=== PATIENT | male | born 1960 | race Caucasian/White ===

== ENCOUNTER 2016-09-19 21:50 | Emergency (ER) | payer OTHER ==
--- NOTE | 2016-09-19 22:58 | ED ---
Alcohol HPI - General Chief Complaint: Alcohol Stated Complaint: ETOH Time Seen by Provider: 09/19/16 22:07 Source: EMS Mode of arrival: EMS Limitations: altered mental status - History of Present Illness Initial Comments: Patient brought by EMS. They had been summoned by police for person who was reportedly intoxicated in public. Patient not able to give much history due to apparent intoxication. He does admit to drinking. Patient states he thinks he is at work. Denies injury. MD Complaint: alcohol intoxication Last Drink: unknown Associated Symptoms: denies other symptoms - Related Data Home Medications Medication Instructions Recorded Confirmed Unable To Assess [Unable to Assess] 07/20/13 07/20/13 Allergies Allergy/AdvReac Type Severity Reaction Status Date / Time Unable to Assess Allergy Verified 09/19/16 21:55 Review of Systems ROS Statement: Those systems with pertinent positive or pertinent negative responses have been documented in the HPI. ROS Other: All systems not noted in ROS Statement are negative. Limitations: ROS unobtainable due to patients medical condition Cardiovascular: Denies: chest pain Gastrointestinal: Denies: abdominal pain Musculoskeletal: Denies: back pain Neurological: Denies: headache Past Medical History Past Medical History: No Reported History History of Any Multi-Drug Resistant Organisms: Unobtainable Past Surgical History: No Surgical Hx Reported Past Psychological History: Unable to Obtain Smoking Status: Unknown if ever smoked Past Alcohol Use History: Unable to Obtain Past Drug Use History: Unable to Obtain General Exam Limitations: no limitations General appearance: appears intoxicated, obtunded Head exam: Present: atraumatic, normocephalic, normal inspection Eye exam: Present: PERRL, nystagmus ENT exam: Present: mucous membranes moist Neck exam: Present: normal inspection, full ROM. Absent: tenderness Respiratory exam: Present: normal lung sounds bilaterally. Absent: respiratory distress, wheezes, rales, rhonchi, stridor, chest wall tenderness Cardiovascular Exam: Present: regular rate, normal rhythm, normal heart sounds. Absent: systolic murmur, diastolic murmur, rubs, gallop GI/Abdominal exam: Present: soft. Absent: tenderness, guarding, rebound, mass Extremities exam: Absent: tenderness Back exam: Absent: vertebral tenderness Neurological exam: Present: altered, CN II-XII intact, other (Patient moves all 4 extremities. Patient is GCS 13 (e=3, v=4, m=6)). Absent: oriented X3 ( Oriented to person), motor sensory deficit Skin exam: Present: warm, dry, intact, normal color. Absent: rash Course Vital Signs 09/19/16 09/20/16 09/20/16 21:53 00:02 04:54 Temperature 97.0 F L 96.8 F L Pulse Rate 73 63 82 Respiratory 16 16 19 Rate Blood Pressure 119/66 95/50 112/63 O2 Sat by Pulse 93 L 95 95 Oximetry Disposition Clinical Impression: Alcohol intoxication Disposition: HOME SELF-CARE Condition: Fair Instructions: Alcohol Intoxication (ED) Referrals: None,Stated [Primary Care Provider] - 1-2 days
--- NOTE | 2016-09-19 23:20 | CT ---
INDICATION: Mental status changes TECHNIQUE: CT acquisition is performed through the brain. Sagittal and coronal reformatted images provided. No IV contrast is administered. DOSE INFORMATION: CTDIvol 57.40 mGy; DLP 1047.1 mGy-cm. One or more of the following dose reduction techniques were used: automated exposure control, adjustment of the mA and/or kV according to patient size, use of iterative reconstruction technique. COMPARISON: CT head 07/20/13. FINDINGS: There is no evidence of acute intracranial hemorrhage, mass effect, or midline shift. There is no abnormal extra axial fluid collection. Sulci, ventricles, and basal cisterns are normal in size and configuration for patient age. The richard-white matter differentiation is preserved. There is no evidence of skull fracture. The visualized paranasal sinuses demonstrate trace mucosal thickening. The mastoid air cells are clear. IMPRESSION: 1. No CT evidence of acute intracranial process.
[2016-09-20 04:55] VITALS: BP 112/63; PULSE 82; RESP 19
[2016-09-20 05:55] VITALS: TEMP 97.4
== END 2016-09-20 05:45 | disposition home or self-care (01) ==
LOC: EC 21:50
DX: F10.229 Alcohol dependence with intoxication, unspecified (principal); R41.82 Altered mental status, unspecified
CPT/HCPCS: 70450; 99284

== ENCOUNTER 2017-11-06 10:15 | Emergency (ER) | payer OTHER ==
[2017-11-06] MEDS ORDERED: SODIUM CHLORIDE 0.9% 1,000 ML IV STA (10:20)
[2017-11-06] MEDS ORDERED: IPRATROPIUM-ALBUTEROL 3 ML NEB INHALATION STA (10:20)
[2017-11-06] MEDS ORDERED: methylPREDNISolone SOD SUCCI 125 MG/2 ML VIAL IV STA (10:20)
--- NOTE | 2017-11-06 10:24 | ED ---
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 He states the pain is [id number] in severity. He does state he is short of breath. He also states he does not like his living situation and has been very anxious recently MD Complaint: chest pain, other - Related Data Home Medications Medication Instructions Recorded Confirmed No Known Home Medications 11/06/17 11/06/17 Allergies Allergy/AdvReac Type Severity Reaction Status Date / Time No Known Allergies Allergy Verified 11/06/17 11:41 Review of Systems ROS Statement: Those systems with pertinent positive or pertinent negative responses have been documented in the HPI. ROS Other: All systems not noted in ROS Statement are negative. EKG Findings - EKG Results: EKG: interpreted by JOSE MIGUEL, sinus rhythm (Sinus bradycardia 57 appear of 01 84 QRS 96 QT since QTC 466/453 moderate voltage criteria for LVH nonspecific septal changes) Past Medical History Past Medical History: No Reported History History of Any Multi-Drug Resistant Organisms: Unobtainable Past Surgical History: No Surgical Hx Reported Past Psychological History: Unable to Obtain Smoking Status: Unknown if ever smoked Past Alcohol Use History: Unable to Obtain Past Drug Use History: Unable to Obtain General Exam - General Exam Comments Initial Comments: This is a well-developed well-nourished awake alert oriented 3 male who does appear anxious and dyspneic General appearance: alert, in no apparent distress Head exam: Present: atraumatic, normocephalic, normal inspection Eye exam: Present: normal appearance, PERRL, EOMI. Absent: scleral icterus, conjunctival injection, periorbital swelling ENT exam: Present: normal exam, mucous membranes moist Neck exam: Present: normal inspection. Absent: tenderness, meningismus, lymphadenopathy Respiratory exam: Present: wheezes, chest wall tenderness (Producible tenderness palpation over the costal sternal margin no step-off or crepitation scattered expiratory wheezes.), decreased breath sounds. Absent: respiratory distress, rales, rhonchi, stridor Cardiovascular Exam: Present: regular rate, normal rhythm, normal heart sounds. Absent: systolic murmur, diastolic murmur, rubs, gallop, clicks GI/Abdominal exam: Present: soft, normal bowel sounds. Absent: distended, tenderness, guarding, rebound, rigid Extremities exam: Present: normal inspection, full ROM, normal capillary refill. Absent: tenderness, pedal edema, joint swelling, calf tenderness Back exam: Present: normal inspection Neurological exam: Present: alert, oriented X3, CN II-XII intact Psychiatric exam: Present: normal affect, normal mood Skin exam: Present: warm, dry, intact, normal color. Absent: rash Course Vital Signs 11/06/17 11/06/17 11/06/17 10:33 10:44 10:57 Temperature 97.5 F L Pulse Rate 60 71 68 Respiratory 19 Rate Blood Pressure 127/92 O2 Sat by Pulse 95 Oximetry Chest Pain [facility] Patient is pain-free at this time I did have a long discussion with her regarding the findings CAT scan showed evidence of a aortic aneurysm which she is aware of. I did offer the patient admission he does not want be admitted this time he wants to follow palpation. The presentation is consistent with atypical chest pain. He was invited to come back at any time. Disposition Clinical Impression: Atypical chest pain Disposition: HOME SELF-CARE Condition: Good Instructions: Chest Pain (ED) Is patient prescribed a controlled substance at d/c from ED?: No Referrals: None,Stated [Primary Care Provider] - 1-2 days
[2017-11-06 11:01] LABS: ALT 27 U/L (21-72); AST 40 U/L (17-59); Albumin 3.7 g/dL (3.5-5.0); Alkaline Phosphatase 62 U/L (38-126); Anion Gap 13 mmol/L; Blood Urea Nitrogen 10 mg/dL (9-20); Calcium 8.8 mg/dL (8.4-10.2); Carbon Dioxide 22 mmol/L (22-30); Chloride 106 mmol/L (98-107); Glucose 156 mg/dL (74-99); Magnesium 1.6 mg/dL (1.6-2.3); Potassium 4.4 mmol/L (3.5-5.1); Sodium 141 mmol/L (137-145); Total Bilirubin 0.5 mg/dL (0.2-1.3); Total Protein 6.4 g/dL (6.3-8.2)
[2017-11-06 11:02] LABS: Partial Thromboplastin Time 24.1 sec (22.0-30.0); Prothrombin Time 9.7 sec (9.0-12.0)
[2017-11-06 11:03] LABS: Basophils % (A) 0 %; Eosinophils # (A) 0.1 k/uL (0-0.7); Eosinophils % (A) 1 %; HCT 41.6 % (39.0-53.0); HGB 13.3 gm/dL (13.0-17.5); Lymphocytes # (A) 0.8 k/uL (1.0-4.8); Lymphocytes % (A) 8 %; MCH 30.5 pg (25.0-35.0); MCHC 31.9 g/dL (31.0-37.0); MCV 95.6 fL (80.0-100.0); Mean Platelet Volume 6.7; Monocytes # (A) 0.8 k/uL (0-1.0); Monocytes % (A) 8 %; Neutrophils # (A) 8.5 k/uL (1.3-7.7); Neutrophils % (A) 83 %; Platelet Count 330 k/uL (150-450); RBC 4.35 m/uL (4.30-5.90); RDW 12.8 % (11.5-15.5); WBC 10.3 k/uL (3.8-10.6)
[2017-11-06 11:04] LABS: D-Dimer 1.22 mg/L FEU (<0.60)
[2017-11-06 11:08] LABS: Creatine Kinase 234 U/L (55-170)
--- NOTE | 2017-11-06 11:16 | XR ---
EXAMINATION TYPE: XR chest 2V DATE OF EXAM: 11/06/2017 COMPARISON: 07/20/2013 TECHNIQUE: PA and lateral views submitted. HISTORY: Difficulty breathing FINDINGS: The lungs are clear and there is no pneumothorax, pleural effusion, or focal pneumonia. Curvature t he spine noted. There is a 8mm nodule in the left upper lobe. Hyperinflation suggests COPD. No overt failure. Hypertrophic degenerative change of the spine. IMPRESSION: 1. No acute process. Correlate for COPD. 2. A millimeter left upper lobe pulmonary nodule.
[2017-11-06 11:21] LABS: Creatine Kinase MB 2.2 ng/mL (0.0-2.4); Troponin I <0.012 ng/mL (0.000-0.034)
--- NOTE | 2017-11-06 11:55 | CT ---
EXAMINATION TYPE: CT angio chest DATE OF EXAM: 11/06/2017 COMPARISON: None HISTORY: 57-year-old male Chest pain TECHNIQUE: Contiguous axial scanning of the chest performed with IV Contrast, patient injected with 7 5 mL of Isovue 370. Coronal/sagittal MIP reconstructions performed. CT DLP: 354 mGycm Automated exposure control for dose reduction was used. FINDINGS: Heart normal size with a [id number] pericardial effusion measuring 1.2 cm thick. Ascending aorta mildly aneurysmal at 4.2 cm. Conventional branching anatomy and additional aneurysm u pper descending thoracic aorta 3.8 cm. Lower descending thoracic aorta is ectatic at 2.8 cm. Possible circumferential wall thickening of the distal third thoracic esophagus, for example, refer t o axial image 69. This may relate to redundant and adjacent abutting mediastinal soft tissue. No thoracic lymphadenopathy by CT size criteria. Satisfactory opacification of the pulmonary nodule system without evidence for pulmonary embolus. Mild/moderate diffuse bronchial wall thickening and moderate centrilobular emphysema. Trace left pleural effusion with adjacent atelectasis is noted. Visualized upper abdomen show a hypervascular blush within the caudate lobe measuring 2.0 cm, either vascular shunting or a flash filling hemangioma. Bones: Moderate multilevel degenerative disc disease. IMPRESSION: 1. NO EVIDENCE FOR PULMONARY EMBOLUS. 2. THORACIC AORTIC ANEURYSM (ASCENDING 4.2 CM AND UPPER DESCENDING 3.8 CM). 3. COPD WITH MODERATE EMPHYSEMA. TRACE LEFT PLEURAL EFFUSION WITH ADJACENT ATELECTASIS. 4. QUESTIONABLE ABNORMAL WALL THICKENING ALONG THE DISTAL THIRD THORACIC ESOPHAGUS. CORRELATE FOR POS SIBLE ESOPHAGITIS. DIRECT VISUALIZATION TO EXCLUDE THE POSSIBILITY OF NEOPLASM. 5. SMALL TO MODERATE PERICARDIAL EFFUSION MEASURING 1.2 CM THICK.
[2017-11-06 14:27] VITALS: BP 157/83; PULSE 89; RESP 18; TEMP 97.6
== END 2017-11-06 14:27 | disposition home or self-care (01) ==
LOC: EC 10:15
DX: R07.89 Other chest pain (principal); I71.2 Thoracic aortic aneurysm, without rupture; J44.9 Chronic obstructive pulmonary disease, unspecified; I25.2 Old myocardial infarction
CPT/HCPCS: 99285; 96374; 96361 ×4; 36415; 94640; 93005; 85379; 83880; 80053; 82550; 82553; 83735; 84484; 85025; 85610; 85730; 71046; 71275; J2930; Q9967

== ENCOUNTER → 2019-05-01 | Outpatient (CLI) | payer OTHER ==
--- NOTE | 2019-05-01 13:05 | CT ---
EXAMINATION TYPE: CT chest wo con DATE OF EXAM: 05/01/2019 COMPARISON: 11/06/2017 HISTORY: Abnormal chest xray, chest pain and shortness of breath. CT DLP: 284 mGycm. Automated Exposure Control for Dose Reduction was Utilized. TECHNIQUE: CT scan of the thorax is performed without IV contrast. FINDINGS: LUNGS: The lungs are grossly clear, there is no concerning parenchymal mass or nodule identified. T here is no pleural effusion or pneumothorax seen. There is diffuse emphysematous change compatible w ith COPD. The tracheobronchial tree is patent. MEDIASTINUM: Lack of IV contrast is noted to limit evaluation for mediastinal and especially hilar ad enopathy. There are no definitive greater than 1 cm hilar or mediastinal lymph nodes. No cardiomega ly or pericardial effusion is seen. Ascending aorta measures 4.4 cm compatible with mild aneurysmal d ilation. Trace of pericardial fluid noted. OTHER: Multilevel degenerative disc disease. Scoliotic curvature noted. Liver is prominent in size. M easures 23 cm.. IMPRESSION: 1. COPD with no acute intrathoracic process. 2. 4.4 cm ascending aortic aneurysm which previously measured 4.2 cm. 3. Hepatomegaly 4. Mild thickening of the distal esophageal wall is stable with a small hiatal hernia. Correlate with direct visualization as clinically warranted.
== END | disposition home or self-care (01) ==
LOC: RADCTMAIN 11:54
PROVIDERS: ATTEND Family Medicine
DX: J44.9 Chronic obstructive pulmonary disease, unspecified (principal); I71.2 Thoracic aortic aneurysm, without rupture; K22.8 Other specified diseases of esophagus
CPT/HCPCS: 71250

== ENCOUNTER 2022-01-18 23:45 | Inpatient (IN) | payer OTHER ==
[2022-01-19 00:59] LABS: Basophils % (A) 0 %; Eosinophils # (A) 0.1 k/uL (0-0.7); Eosinophils % (A) 0 %; HCT 38.4 % (39.0-53.0); HGB 13.1 gm/dL (13.0-17.5); Lymphocytes # (A) 0.7 k/uL (1.0-4.8); Lymphocytes % (A) 6 %; MCH 31.1 pg (25.0-35.0); MCHC 34.1 g/dL (31.0-37.0); MCV 91.1 fL (80.0-100.0); Mean Platelet Volume 8.4; Monocytes # (A) 0.8 k/uL (0-1.0); Monocytes % (A) 7 %; Neutrophils % (A) 86 %; Platelet Count 272 k/uL (150-450); RBC 4.21 m/uL (4.30-5.90); RDW 12.9 % (11.5-15.5); WBC 11.7 k/uL (3.8-10.6)
[2022-01-19 01:10] LABS: AST 220 U/L (17-59); African American GFR (CKD) >90 (>60 ml/min/1.73 sqM); Albumin 4.2 g/dL (3.5-5.0); Alkaline Phosphatase 105 U/L (38-126); Anion Gap 13 mmol/L; Blood Urea Nitrogen 32 mg/dL (9-20); Calcium 8.9 mg/dL (8.4-10.2); Carbon Dioxide 19 mmol/L (22-30); Chloride 98 mmol/L (98-107); Glucose 75 mg/dL (74-99); Non-African American GFR(CKD) >90 (>60 ml/min/1.73 sqM); Potassium 4.4 mmol/L (3.5-5.1); Sodium 130 mmol/L (137-145); Total Bilirubin 0.5 mg/dL (0.2-1.3); Total Protein 6.3 g/dL (6.3-8.2)
[2022-01-19 01:11] LABS: ALT 97 U/L (4-49); Alcohol <10 mg/dL; Partial Thromboplastin Time 27.3 sec (22.0-30.0); Prothrombin Time 10.6 sec (9.0-12.0)
--- NOTE | 2022-01-19 01:23 | CT ---
EXAMINATION TYPE: CT brain cspine wo con DATE OF EXAM: 01/19/2022 COMPARISON: CT brain and cervical spine 07/20/2013 HISTORY: AMS CT DLP: 1373.1 mGycm Automated exposure control for dose reduction was used. Images of the brain and cervical spine obtained with no contrast. Ventricles and sulci appear normal. There is no mass effect or midline shift. No sign of intracranial hemorrhage. The calvarium is intact. There is normal aeration of the mastoids sinuses. Skull base is intact. The cervical vertebra show degenerative disc space narrowing from C5 to T1 with spurring of the endpl ates. There is mild multilevel cervical facet arthropathy. No cervical spine compression fracture. No subluxation. There is mild straightening of the cervical spine. There is uncovertebral spurring and multilevel bilateral neural foraminal narrowing of the lower cerv ical spine seen from C5 to T1. IMPRESSION: Multilevel cervical spondylotic changes not significantly different than old exam. Negative CT scan of the brain. No significant change compared to old exam.
[2022-01-19 01:37] LABS: Creatine Kinase 6047 U/L (55-170)
--- NOTE | 2022-01-19 01:37 | XR ---
EXAMINATION TYPE: XR chest 2V DATE OF EXAM: 01/19/2022 COMPARISON: 11/06/2017 HISTORY: Altered mental status TECHNIQUE: FINDINGS: Heart size is normal. There is some coarsening of interstitial markings. There are no hilar masses. Costophrenic angles are clear. The bony thorax is intact. No pleural effusion. IMPRESSION: Increased interstitial density compared to the old exam and could be some mild interstiti al pneumonia. No obvious heart failure.
[2022-01-19] MEDS ORDERED: SODIUM CHLORIDE 0.9% 1,000 ML IV ONE (03:23)
[2022-01-19] MEDS ORDERED: NALOXONE 0.4 MG/ML 1 ML VIAL IV PRN (04:18)
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
[2022-01-19] MEDS ORDERED: AZITHROMYCIN 500 MG in SODIUM CHLORIDE 0.9% 250 ML IVPB STA (04:24)
[2022-01-19] MEDS ORDERED: cefTRIAXone IN SWFI 1,000 MG/10 ML SYRINGE IVP STA (04:24)
[2022-01-19] MEDS: SODIUM CHLORIDE 0.9% 1,000 ML IV SCH ×3 (05:04→23:38)
[2022-01-19] MEDS ORDERED: LORazepam 2 MG/ML INJ IV PRN (07:52)
[2022-01-19] MEDS ORDERED: ACETAMINOPHEN TAB 325 MG TAB PO PRN (07:55)
--- NOTE | 2022-01-19 07:56 | P.HPIM ---
History of Present Illness This is a pleasant 61 years old male with unknown past medical history presents with altered mental status and was found stumbling outside of [employer] - patient is homeless and was wet and cold. Police state patient's alchohol was negative. An episode patient was lying in bed fully awake and oriented to time place and person he says he wasn't sure why he was brought to the hospital However he was not feeling good the last few days, he was not sleeping well, not eating well, he says he feels couple times but he cannot remember the details and he did not know for sure if he passed out or not. But he states that he bit his tongue and he had urine incontinence on himself but no bowel incontinence. He could not remember he had a seizure, he denies history of seizure he denies being on seizure medication. He says he feels wobbly and feels weak and painful all over, no specific weakness or numbness or loss of sensation. No headache or dizziness. He denies chest pain but is complaining from shortness of breath and coughing with clear phlegm which was worse over the last 2 days He also complained from mild lower abdominal pain, he says about 3/10 in severity, nonradiating, not localized felt like cramps. He says his bold movement were fine before but he wasn't short lately but denies vomiting. He denies dysuria or urgency. He smokes cigarettes, he rolled his on cigarettes he cannot tell, she smokes as he states, he denies alcohol or illicit drugs He denies symptoms of depression or suicidal or homicidal ideation but he admits to auditory hallucination, could not tell what the some sterile him Vitas looks stable. Labs showing mild leukocytosis of 11.7, rest of CBC is unremarkable. INR is 1.0. Sodium is 1:30. BMP is unremarkable Liver enzymes as well as elevated with AST 220 and ALT 97 but bilirubin is normal. Creatinine kinase is high 6047 Serum alcohol less than 10 Chest x-ray showing increased interstitial density compared to old exam could be some interstitial pneumonia. No obvious heart failure CT of the cervical spine: no Acute process after reviewing radiology department An ER visit Zithromax and ceftriaxone 1 and normal saline. Review of Systems Review of systems CONSTITUTIONAL: No fever, no malaise, no fatigue. HEENT: No recent visual problems or hearing problems. Denied any sore throat. CARDIOVASCULAR: No orthopnea, PND, no palpitations, no syncope. PULMONARY: No chest wall tenderness, no hemoptysis. GASTROINTESTINAL: No diarrhea, no nausea, no vomiting, Normoactive bowel sounds. NEUROLOGICAL: No headaches, no weakness, no numbness. HEMATOLOGICAL: Denies any bleeding or petechiae. GENITOURINARY: Denies any burning micturition, frequency, or urgency. MUSCULOSKELETAL/RHEUMATOLOGICAL: Denies any joint pain, swelling, or any muscle pain. ENDOCRINE: Denies any polyuria or polydipsia. ROS unobtainable: due to endotracheal tube Past Medical History Past Medical History: No Reported History History of Any Multi-Drug Resistant Organisms: Unobtainable Past Surgical History: No Surgical Hx Reported Past Psychological History: Unable to Obtain Past Alcohol Use History: Unable to Obtain Past Drug Use History: Unable to Obtain Medications and Allergies Home Medications Medication Instructions Recorded Confirmed Type No Known Home Medications 11/06/17 01/19/22 History Allergies Allergy/AdvReac Type Severity Reaction Status Date / Time No Known Allergies Allergy Verified 01/19/22 06:52 Physical Exam Vitals: Vital Signs Temp Pulse Resp BP Pulse Ox 01/19/22 04:07 97.6 F 85 16 104/65 95 01/19/22 01:57 96.6 F L 69 20 114/81 96 01/18/22 23:51 81 16 134/85 97 Intake and Output 01/18/22 01/19/22 01/19/22 22:59 06:59 14:59 Other: Weight 61.235 kg GENERAL: The patient is alert and oriented x3, not in any acute distress. Well developed, well nourished. HEENT: Pupils are round and equally reacting to light. EOMI. No scleral icterus. No conjunctival pallor. Normocephalic, atraumatic. No pharyngeal erythema. No thyromegaly. CARDIOVASCULAR: S1 and S2 present. No murmurs, rubs, or gallops. PULMONARY: Chest is clear to auscultation, no wheezing or crackles. ABDOMEN: Soft, nontender, nondistended, normoactive bowel sounds. No palpable organomegaly. MUSCULOSKELETAL: No joint swelling or deformity. EXTREMITIES: No cyanosis, clubbing, or pedal edema. NEUROLOGICAL: Gross neurological examination did not reveal any focal deficits. SKIN: No rashes. no petechiae. Results CBC & Chem 7: 01/19/22 00:37 01/19/22 00:37 Labs: Abnormal Lab Results - Last 24 Hours (Table) 01/19/22 01/19/22 Range/Units 00:37 00:37 WBC 11.7 H (3.8-10.6) k/uL RBC 4.21 L (4.30-5.90) m/uL Hct 38.4 L (39.0-53.0) % Neutrophils # 10.0 H (1.3-7.7) k/uL Lymphocytes # 0.7 L (1.0-4.8) k/uL Sodium 130 L (137-145) mmol/L Carbon Dioxide 19 L (22-30) mmol/L BUN 32 H (9-20) mg/dL AST 220 H (17-59) U/L ALT 97 H (4-49) U/L Creatine Kinase 6047 H* (55-170) U/L Assessment and Plan Assessment: Transient period of Altered mental status, resolved now Mild COPD exacerbation rhabdomyolysis Increased interstitial density which could be mild interstitial pneumonia Mild hypovolemic hyponatremia Auditory hallucination Mild transaminitis could be related to rhabdomyolysis (bilirubin is normal) Plan: continue with intravenous hydration and follow-up creatinine kinase Check pro-calcitonin , in the meantime we will start the patient on Augmentin for possible pneumonia Check urine drug screen Incentive spirometry, and held. Steroids, bronchodilator Consults psychiatry Labs and medication were reviewed.. Continue same treatment. Continue with symptomatic treatment. Resume home medication. Monitor labs and vitals. DVT and GI prophylaxis. Further recommendations as per clinical course of the patient DVT prophylaxis: Subcutaneous heparin GI Prophylaxis: Pepcid PT/OT: Pending Prognosis is guarded
[2022-01-19] MEDS: NICOTINE 21MG/24HR PATCH TRANSDERM SCH (08:08)
[2022-01-19] MEDS: FAMOTIDINE 20 MG/2 ML VIAL IV SCH ×2 (08:09→22:53)
[2022-01-19] MEDS: HEPARIN SODIUM,PORCINE/PF 5,000 UNIT/0.5 ML SYRINGE SQ SCH ×2 (08:09→22:16)
[2022-01-19] MEDS: AMOXIC-POT CLAV 875-125MG 1 EACH TAB PO SCH ×2 (08:17→23:38)
[2022-01-19] MEDS: SYMBICORT 160-4.5 MCG INHALER INHALATION SCH ×2 (12:53→19:31)
--- NOTE | 2022-01-19 13:20 | P.PN ---
Progress Note - Text Progress Note Date: 01/19/22 This provider attempted to assess the patient at approximately 1310 on 01/19. Patient is currently not in room. As per nurse he is undergoing testing at this time. Patient is reportedly calm and cooperative in the Emergency Room. We will reattempt to evaluate the patient tomorrow. Chart reviewed. No medication recommendations will be made at this time.
[2022-01-19 16:38] LABS: Appearance,Urine Clear (Clear); Bilirubin,Urine Negative (Negative); Blood,Urine Negative (Negative); Color,Urine Yellow; Glucose,Urine (UA) Negative (Negative); Ketones,Urine 2+ (Negative); Leukocyte Esterase,Urine Negative (Negative); Nitrite,Urine Negative (Negative); PH, Urine 5.5 (5.0-8.0); Protein,Urine Trace (Negative); Specific Gravity,Urine 1.013 (1.001-1.035); Urobilinogen,Urine <2.0 mg/dL (<2.0)
[2022-01-19 16:47] LABS: Amphetamine Screen,Urine Not Detected (NotDetected); Barbiturate Screen,Urine Not Detected (NotDetected); Benzodiazepines Screen,Urine Not Detected (NotDetected); Cocaine Screen,Urine Not Detected (NotDetected); Methadone Screen, Urine Not Detected (NotDetected); Opiate Screen,Urine Not Detected (NotDetected); Oxycodone Screen, Urine Not Detected (NotDetected); Phencyclidine Screen,Urine Not Detected (NotDetected); Tricyclic Antidepressant,Urine Not Detected (NotDetected); Urn Cannabinoid Scrn Detected (NotDetected)
[2022-01-19 23:10] LABS: Appearance,Urine Clear (Clear); Bilirubin,Urine Negative (Negative); Blood,Urine Negative (Negative); Color,Urine Yellow; Glucose,Urine (UA) Negative (Negative); Ketones,Urine 2+ (Negative); Leukocyte Esterase,Urine Negative (Negative); Nitrite,Urine Negative (Negative); PH, Urine 5.5 (5.0-8.0); Protein,Urine Trace (Negative); Specific Gravity,Urine 1.013 (1.001-1.035); Urobilinogen,Urine <2.0 mg/dL (<2.0)
--- NOTE | 2022-01-19 23:35 | P.CNNES ---
History of Present Illness Consult date: 01/19/22 Requesting physician: José Luis Jimenez Reason for Consult: Transient altered mental status on admission History of Present Illness: Patient is a 61-year-old male, who was evicted from his house 2 months ago, has been homeless, came to the hospital by ambulance yesterday at 11:45 PM. As per EMS flow sheet, when they arrived, patient was sitting at the picnic table outside. Bystanders on the scene mentioned that he has been at lunch for a few hours drinking coffee and the bystanders found him sitting on the ground next to his truck. Per police department, he was unable to walk. Patient did have unsteady gait and could not ambulate. His point breath test. 0.00. Patient denied drinking alcohol or consuming any drugs. Patient was alert and oriented 4 was able to answer all questions appropriately however he appeared to be lethargic, stating he has not slept in days and had to be aroused by verbal stimuli. Patient says that he did bit his lip and tongue, but does not know how it happened. Patient's temperature on arrival was 96.0.blood test shows WBC 11.7, hemoglobin 13.1, platelets 272. PT/PTT normal, sodium 130, potassium 4.4, renal functions are normal. AST is 220, ALT 97. CPK is elevated 6047. Blood alcohol level was less than 10.CT head and cervical spine revealed no acute process. Multilevel cervical spondylotic changes not significantly different from old exam. Patient tells me that he had a roommate, who wasnot supposed to be there. He led to his eviction from the apartment. Therefore he has been homeless, living outside for 2 months. He sleeps on the ground. Patient states that his mind, body and soul, all hit him at once. He states that he drinks between coffee, bear, cigarettes and marijuana. There is no set schedule. However he does not do any drugs and does not become violent. 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 He came inside home, took shower, cold down and his body locked up and it took almost 1 hour to 1-1/2 to slowly let it go. He called it as a seizure. He is not sure about any obvious seizure in the past "hard to say if I had a seizure". He says that his whole body hurts. He is limited what he can do. Patient denies diabetes, although he claims he has hypoglycemia. He has COPD, heart murmur, does not have any children. Review of Systems Constitutional: Reports malaise, Denies chills, Denies fever Eyes: denies blurred vision, denies pain Ears: deny: decreased hearing Ears, nose, mouth and throat: Denies headache, Denies sore throat Cardiovascular: Reports shortness of breath, Denies chest pain Respiratory: Reports congestion, Reports cough Gastrointestinal: Denies abdominal pain, Denies diarrhea, Denies nausea, Denies vomiting Musculoskeletal: Reports hot joints, Reports morning stiffness, Reports myalgias Integumentary: Reports rash, Denies pruritus Neurological: Reports as per HPI Past Medical History Past Medical History: No Reported History History of Any Multi-Drug Resistant Organisms: Unobtainable Past Surgical History: No Surgical Hx Reported Past Psychological History: Unable to Obtain Past Alcohol Use History: Unable to Obtain Past Drug Use History: Unable to Obtain Medications and Allergies Home Medications Medication Instructions Recorded Confirmed Type No Known Home Medications 11/06/17 01/19/22 History Allergies Allergy/AdvReac Type Severity Reaction Status Date / Time No Known Allergies Allergy Verified 01/19/22 06:52 Physical Examination - Vital Signs Vital Signs: Vital Signs Temp Pulse Resp BP Pulse Ox 01/19/22 04:07 97.6 F 85 16 104/65 95 01/19/22 01:57 96.6 F L 69 20 114/81 96 01/18/22 23:51 81 16 134/85 97 Intake and Output 01/18/22 01/19/22 01/19/22 22:59 06:59 14:59 Other: Weight 61.235 kg Patient is an elderly male, in no acute distress. He is somewhat flushed. Patient is alert awake oriented to time place and person. He knows it is Dec ember and the year as 2021 and that is in [facility] in [facility]. Speech and language functions are normal. Patient can name and repeat very well. No aphasia or dysarthria. Attention, concentration and fund of knowledge is adequate. On cranial nerve examination, pupils are equal, round and reacting to light, visual khan are full on confrontation, with no neglect on double simultaneous stimulation. Extraocular muscles are intact with no nystagmus. Face is symmetric, tongue protrudes to the midline. Palatal elevation and sensation normal, hearing and shoulder shrug normal, facial sensation normal. On muscle strength testing, there is no pronator drift and the strength is normal in arms and legs distally and proximally. Deep tendon reflexes are (right/left) biceps 1+/1+, brachioradialis 1/1, knees 2/2+, ankles 0/0, plantars are withdrawal bilaterally. Sensory to touch is equal with no neglect on double simultaneous stimulation. Cerebellar function showed no ataxia for [id number] testing. No dysdiadochokinesia. No ataxia for [id number] testing on either side. Tone and bulk of muscles normal. Gait deferred.. On general examination, there is no carotid bruit or murmur, S1-S2 audible. Chest is clear on consultation. Abdomen is soft nontender. No organomegaly, bowel sounds present. Peripheral pulses are present. No edema. Patient's skin over the knees are very red. He has scabs on his knees. Results - Laboratory Findings CBC and BMP: 01/19/22 00:37 01/19/22 00:37 Abnormal Lab Findings: Abnormal Labs 01/19/22 01/19/22 01/19/22 00:37 00:37 00:37 WBC 11.7 H RBC 4.21 L Hct 38.4 L Neutrophils # 10.0 H Lymphocytes # 0.7 L Sodium 130 L Carbon Dioxide 19 L BUN 32 H AST 220 H ALT 97 H Creatine Kinase 6047 H* Procalcitonin 0.27 H Assessment and Plan Assessment: * Altered mental status, likely due to metabolic encephalopathy. * Possible seizure, which could be related to withdrawal. * History of alcoholism, tobacco use. * Homeless state for 2 months. * Elevated liver enzymes * Hyponatremia * Rhabdomyolysis * Marijuana use Plan: * EEG was performed today. It showed no epileptiform activity. No indication for antiepileptic medication at this time. * B12, folate, TSH. * Repeat CPK. * Patient informed of [place] state law of no driving unless seizure free for 6 was, climbing ladders, operating dangerous machinery or unsupervised swimming. * Recommended tobacco cessation, abstain from alcohol. * Neurology will follow clinically. Thank you for the consult.
--- NOTE | 2022-01-20 03:20 | EEG ---
ELECTROENCEPHALOGRAM REPORT PREAMBLE: This is a 61-year-old male with episode of altered mental status. The patient was found unresponsive outside a local business. He is currently homeless. The patient did bite his tongue and lost control of his bladder. EEG FINDINGS: This is a 21-channel digital EEG recorded with video component, utilizing 10/20 international system with referential and bipolar montages. Background consists of well-developed, moderately well regulated, mixed frequencies of 8 hertz alpha, with some 7 hertz theta activity seen in bihemispheric region. Background is posterior dominant and reactive to eye opening and closing. Photic driving response was not seen. Frequent myogenic artifacts were seen. Some drowsiness was seen with appearance of bilaterally symmetric theta frequency rhythm. Stage 2 sleep was seen with presence of sleep spindles. No focal or generalized epileptiform activity was seen. IMPRESSION: This is a mildly abnormal EEG due to background slowing of very mild degree. This is suggestive of generalized cerebral dysfunction as can be seen with encephalopathy or medication effect. No epileptiform activity was seen. MMODL / IJN: [id number] /
[2022-01-20] MEDS: SODIUM CHLORIDE 0.9% 1,000 ML IV SCH ×3 (06:48→15:33)
[2022-01-20 09:32] LABS: Basophils # (A) 0.02 X 10*3/uL (0.00-0.10); Basophils % (A) 0.3 %; Eosinophils # (A) 0.01 X 10*3/uL (0.04-0.35); Eosinophils % (A) 0.1 %; HCT 31.5 % (39.6-50.0); HGB 10.5 g/dL (13.0-17.0); Immature Grans, Automated 0.3 %; Lymphocytes # (A) 1.28 X 10*3/uL (0.90-5.00); Lymphocytes % (A) 16.1 %; MCH 29.7 pg (27.0-32.0); MCHC 33.3 g/dL (32.0-37.0); Mean Platelet Volume 10.5 fL (9.5-12.2); Monocytes # (A) 1.09 X 10*3/uL (0.20-1.00); Monocytes % (A) 13.7 %; NRBC Per 100 WBC 0 /100 WBCS (0.0-0.0); Neutrophils # (A) 5.54 X 10*3/uL (1.80-7.70); Neutrophils % (A) 69.5 %; Platelet Count 272 X 10*3/uL (140-440); RBC 3.54 X 10*6/uL (4.40-5.60); RDW 13.7 % (11.5-14.5); WBC 7.96 X 10*3/uL (4.50-10.00)
[2022-01-20] MEDS: SYMBICORT 160-4.5 MCG INHALER INHALATION SCH ×2 (09:35→21:11)
[2022-01-20] MEDS: FAMOTIDINE 20 MG/2 ML VIAL IV SCH ×2 (09:41→20:37)
[2022-01-20] MEDS: HEPARIN SODIUM,PORCINE/PF 5,000 UNIT/0.5 ML SYRINGE SQ SCH ×2 (09:41→20:38)
[2022-01-20] MEDS: NICOTINE 21MG/24HR PATCH TRANSDERM SCH (09:41)
[2022-01-20] MEDS: AMOXIC-POT CLAV 875-125MG 1 EACH TAB PO SCH ×2 (09:41→20:36)
[2022-01-20 10:48] LABS: African American GFR (CKD) 92.4 (60.0-200.0); Anion Gap 9.3 mmol/L (10.00-18.00); BUN/Creat Ratio 28.7 Ratio (12.00-20.00); Blood Urea Nitrogen 28.7 mg/dL (9.0-27.0); Calcium 8.3 mg/dL (8.7-10.3); Carbon Dioxide 21.7 mmol/L (20.0-27.5); Non-African American GFR(CKD) 79.7 (60.0-200.0); Potassium 4.8 mmol/L (3.5-5.5)
[2022-01-20 12:22] VITALS: BMI 18.3
--- NOTE | 2022-01-20 14:01 | P.CN ---
Psychiatric Consult - . Consult date: 01/20/22 Consult:: 01/20/22 13:59 IDENTIFYING DATA: This patient is a single, unemployed, homeless, 61-year-old male with a history of schizophrenia who presented to our hospital for altered mental status. HISTORY OF PRESENT ILLNESS: The patient presented to the hospital on 01/19/2022, brought in by police after being found stumbling outside of a bar. Upon presentation the emergency department, the patient was noted to have a joint abnormalities including hyponatremia as well as a CK of 6000. Psychiatry has been consulted for evaluation of auditory hallucinations and altered mental status. The patient reports that for the past 2 years he has been homeless. He states that he initially had an apartment which she was living in however people started taking advantage of his hospitality and began staying over causing him to be evicted from the apartment. He reports that since then he has been homeless. He states that he has no regular diet or schedule and only gets by with what he can. In regards to psychiatric symptoms, the patient is denying any suicidal or homicidal ideation, intention,/or plan. He is not reporting any auditory or visual hallucinations. He denies any paranoia or other delusions. He does report that he was previously expressing auditory hallucinations when he is out in the cold. He does state that he was diagnosed with schizophrenia many years ago. He states that he is supposed to be on a regimen of Risperdal and BuSpar however he reports that he has not had this medication for the past few months. He is currently alert and oriented in all spheres. He expresses gratitude for the care he is receiving in this hospital. PAST PSYCHIATRIC HISTORY: Patient has a reported history of schizophrenia. He recalls being previously prescribed Risperdal and BuSpar. He reports he found these medications very beneficial. He does report one prior psychiatric admission back in the s at [facility]. He reports that he was previously open with [facility]. He reports one prior attempt at suicide more than 20 years ago. PAST MEDICAL HISTORY: COPD ALLERGIES: NO KNOWN DRUG ALLERGIES CHEMICAL DEPENDENCY HISTORY: The patient reports that he smokes up to 2 packs per day of tobacco. He does report marijuana use on occasion when he can afford it. He does report drinking up to four 24 oz of beer per day if he is able to afford it. He denies any illicit drug use. He reports, methamphetamine, cocaine, or opiate use. FAMILY PSYCHIATRIC/SUBSTANCE USE HISTORY: No reported family history SOCIAL HISTORY: Patient was born and raised in [place]. He reports that he is single, never , and has no children. He reports that he does have a payee. He receives Social Security. He states that he is a [employer]. He reports no current legal issues. MENTAL STATUS EXAM: General Appearance: Patient appears to be stated age is alert, pleasant, and cooperative. Patient appears to have fair hygiene and grooming wearing hospital gown with fair eye contact. Behavior: Patient is eating his lunch. Speech: Patient's speech is fluent and nonpressured. Mood/Affect: Patient reports their mood is "feeling much better", affect is congruent and bright Suicidality/Homicidality: Patient denies having any suicidal or homicidal ideation intent or plan. Perceptions: Patient denies any visual hallucinations and denies any auditory hallucinations Though content/process: There is no evidence of any delusional thought content and thought process is linear and goal-directed. Memory and concentration: AOX3, grossly intact for the purposes of this session. Can spell "WORLD" backwards Judgment and insight: Fair IMPRESSIONS: Altered mental status, resolved Schizophrenia, by history Hyponatremia Rhabdomyolysis Possible Seizure - suspect withdrawal related. PLAN: -Continue your medical management and evaluation -At this time patient DOES NOT meet criteria for inpatient psychiatric admission. The patient is not endorsing any symptoms of narendra or psychosis at this time. He is not presenting with any imminent risk of harm to self or others. He is at elevated risk due to the general population due to his homelessness as well as his previous attempt at suicide many years ago. -Would recommend the following medication changes/additions: We will restart Risperdal at 0.5 mg by mouth twice a day for psychosis We will restart BuSpar 10 mg by mouth 3 times a day for anxiety. -Recommend outpatient psychiatric follow-up. -Psychiatry will sign off at this point, please contact with any questions. 01/20/22 14:00 01/20/22 14:00
[2022-01-20] MEDS: busPIRone HCl 10 MG TAB PO SCH ×2 (15:33→20:48)
[2022-01-20] MEDS: risperiDONE 0.5 MG TAB PO SCH (20:48)
--- NOTE | 2022-01-20 23:21 | P.PN ---
Subjective This is a pleasant 61 years old male with unknown past medical history presents with altered mental status and was found stumbling outside of [employer] [facility] - patient is homeless and was wet and cold. Police state patient's alchohol was negative. An episode patient was lying in bed fully awake and oriented to time place and person he says he wasn't sure why he was brought to the hospital However he was not feeling good the last few days, he was not sleeping well, not eating well, he says he feels couple times but he cannot remember the details and he did not know for sure if he passed out or not. But he states that he bit his tongue and he had urine incontinence on himself but no bowel incontinence. He could not remember he had a seizure, he denies history of seizure he denies being on seizure medication. He says he feels wobbly and feels weak and painful all over, no specific weakness or numbness or loss of sensation. No headache or dizziness. He denies chest pain but is complaining from shortness of breath and coughing with clear phlegm which was worse over the last 2 days He also complained from mild lower abdominal pain, he says about 3/10 in severity, nonradiating, not localized felt like cramps. He says his bold movement were fine before but he wasn't short lately but denies vomiting. He denies dysuria or urgency. He smokes cigarettes, he rolled his on cigarettes he cannot tell, she smokes as he states, he denies alcohol or illicit drugs He denies symptoms of depression or suicidal or homicidal ideation but he admits to auditory hallucination, could not tell what the some sterile him Vitas looks stable. Labs showing mild leukocytosis of 11.7, rest of CBC is unremarkable. INR is 1.0. Sodium is 1:30. BMP is unremarkable Liver enzymes as well as elevated with AST 220 and ALT 97 but bilirubin is normal. Creatinine kinase is high 6047 Serum alcohol less than 10 Chest x-ray showing increased interstitial density compared to old exam could be some interstitial pneumonia. No obvious heart failure CT of the cervical spine: no Acute process after reviewing radiology department An ER visit Zithromax and ceftriaxone 1 and normal saline. 01/20/2022 Patient today feels better his sitting in chair looks more relaxed fully awake and oriented and his mentation at baseline, he denies headache or any neurologi fabian deficits. However still complaining of from generalized pain although he admits improvement. Creatinine kinase trending down from 6000 and 5000. WBC back to normal, sodium improved and hemoglobin is stable at 10.5. Patient is on Augmentin for possible pneumonia. Patient mentation is improved, neurology service evaluation is appreciated, EEG is negative for epileptiform discharge. His creatinine kinase trending down 6000 down to 5000. Patient kept on normal saline and Augmentin Objective - Vital Signs Vital signs: Vital Signs Temp 98.2 F 01/20/22 08:00 Pulse 68 01/20/22 08:00 Resp 18 01/20/22 08:00 BP 154/79 01/20/22 08:00 Pulse Ox 99 01/20/22 08:00 FiO2 Intake & Output 01/19/22 01/20/22 01/20/22 18:59 06:59 18:59 Weight 61.235 kg 61.235 kg Other: Voiding Method Toilet # Voids 2 - Exam GENERAL: The patient is alert and oriented x3, not in any acute distress. Well developed, well nourished. HEENT: Pupils are round and equally reacting to light. EOMI. No scleral icterus. No conjunctival pallor. Normocephalic, atraumatic. No pharyngeal erythema. No thyromegaly. CARDIOVASCULAR: S1 and S2 present. No murmurs, rubs, or gallops. PULMONARY: Chest is clear to auscultation, no wheezing or crackles. ABDOMEN: Soft, nontender, nondistended, normoactive bowel sounds. No palpable organomegaly. MUSCULOSKELETAL: No joint swelling or deformity. EXTREMITIES: No cyanosis, clubbing, or pedal edema. NEUROLOGICAL: Gross neurological examination did not reveal any focal deficits. SKIN: No rashes. no petechiae. - Labs CBC & Chem 7: 01/20/22 05:35 01/20/22 05:35 Labs: Abnormal Lab Results - Last 24 Hours (Table) 01/19/22 01/19/22 01/19/22 Range/Units 16:40 Unknown Unknown RBC (4.40-5.60) X 10*6/uL Hgb (13.0-17.0) g/dL Hct (39.6-50.0) % Monocytes # (0.20-1.00) X 10*3/uL Eosinophils # (0.04-0.35) X 10*3/uL Anion Gap (10.00-18.00) mmol/L BUN (9.0-27.0) mg/dL BUN/Creatinine Ratio (12.00-20.00) Ratio Calcium (8.7-10.3) mg/dL Creatine Kinase (35-257) U/L Urine Protein Trace H Trace H (Negative) Urine Ketones 2+ H 2+ H (Negative) U Marijuana (THC) Screen Detected H (NotDetected) 01/20/22 01/20/22 Range/Units 05:35 05:35 RBC 3.54 L (4.40-5.60) X 10*6/uL Hgb 10.5 L (13.0-17.0) g/dL Hct 31.5 L (39.6-50.0) % Monocytes # 1.09 H (0.20-1.00) X 10*3/uL Eosinophils # 0.01 L (0.04-0.35) X 10*3/uL Anion Gap 9.30 L (10.00-18.00) mmol/L BUN 28.7 H (9.0-27.0) mg/dL BUN/Creatinine Ratio 28.70 H (12.00-20.00) Ratio Calcium 8.3 L (8.7-10.3) mg/dL Creatine Kinase 5294 H* (35-257) U/L Urine Protein (Negative) Urine Ketones (Negative) U Marijuana (THC) Screen (NotDetected) Assessment and Plan Assessment: Transient period of Altered mental status, resolved now Mild COPD exacerbation rhabdomyolysis Increased interstitial density which could be mild interstitial pneumonia Mild hypovolemic hyponatremia. Improved Auditory hallucination Mild transaminitis could be related to rhabdomyolysis (bilirubin is normal) Plan: continue with intravenous hydration and follow-up creatinine kinase Continue with Augmentin for possible pneumonia Incentive spirometry, and held. Steroids, bronchodilator Consults psychiatry for schizophrenia Labs and medication were reviewed.. Continue same treatment. Continue with symptomatic treatment. Resume home medication. Monitor labs and vitals. DVT and GI prophylaxis. Further recommendations as per clinical course of the liyah ent DVT prophylaxis: Subcutaneous heparin GI Prophylaxis: Pepcid PT/OT: Pending Prognosis is guarded
[2022-01-21] MEDS: SODIUM CHLORIDE 0.9% 1,000 ML IV SCH ×2 (05:31→09:31)
[2022-01-21] MEDS: SYMBICORT 160-4.5 MCG INHALER INHALATION SCH ×2 (07:47→21:47)
[2022-01-21] MEDS: AMOXIC-POT CLAV 875-125MG 1 EACH TAB PO SCH ×2 (09:31→20:06)
[2022-01-21] MEDS: HEPARIN SODIUM,PORCINE/PF 5,000 UNIT/0.5 ML SYRINGE SQ SCH ×2 (09:31→20:05)
[2022-01-21] MEDS: busPIRone HCl 10 MG TAB PO SCH ×3 (09:31→23:58)
[2022-01-21] MEDS: NICOTINE 21MG/24HR PATCH TRANSDERM SCH (09:31)
[2022-01-21] MEDS: FAMOTIDINE 20 MG/2 ML VIAL IV SCH (09:31)
[2022-01-21] MEDS: risperiDONE 0.5 MG TAB PO SCH ×2 (09:32→20:06)
[2022-01-21 11:21] LABS: Basophils # (A) 0.03 X 10*3/uL (0.00-0.10); Basophils % (A) 0.5 %; Eosinophils # (A) 0.03 X 10*3/uL (0.04-0.35); Eosinophils % (A) 0.5 %; HCT 34.7 % (39.6-50.0); HGB 11.3 g/dL (13.0-17.0); Immature Grans, Automated 0.4 %; Lymphocytes # (A) 1.37 X 10*3/uL (0.90-5.00); Lymphocytes % (A) 24.8 %; MCH 29.4 pg (27.0-32.0); MCHC 32.6 g/dL (32.0-37.0); MCV 90.4 fL (80.0-97.0); Mean Platelet Volume 10.3 fL (9.5-12.2); Monocytes # (A) 1.21 X 10*3/uL (0.20-1.00); Monocytes % (A) 21.9 %; NRBC Per 100 WBC 0 /100 WBCS (0.0-0.0); Neutrophils # (A) 2.86 X 10*3/uL (1.80-7.70); Neutrophils % (A) 51.9 %; Platelet Count 250 X 10*3/uL (140-440); RBC 3.84 X 10*6/uL (4.40-5.60); RDW 14.1 % (11.5-14.5); WBC 5.52 X 10*3/uL (4.50-10.00)
[2022-01-21 11:29] LABS: African American GFR (CKD) 109.2 (60.0-200.0); Anion Gap 9.6 mmol/L (10.00-18.00); BUN/Creat Ratio 19.93 Ratio (12.00-20.00); Blood Urea Nitrogen 16.3 mg/dL (9.0-27.0); Calcium 8.8 mg/dL (8.7-10.3); Carbon Dioxide 25.2 mmol/L (20.0-27.5); Magnesium 2.1 mg/dL (1.5-2.4); Non-African American GFR(CKD) 94.2 (60.0-200.0); Potassium 4.4 mmol/L (3.5-5.5)
[2022-01-21 11:41] LABS: Glucose,Whole Blood 87 mg/dL (70-110)
--- NOTE | 2022-01-21 12:36 | P.PN ---
Subjective Progress Note Date: 01/21/22 This is a pleasant 61 years old male with unknown past medical history presents with altered mental status and was found stumbling outside of [employer] bar - patient is homeless and was wet and cold. Police state patient's alchohol was negative. An episode patient was lying in bed fully awake and oriented to time place and person he says he wasn't sure why he was brought to the hospital However he was not feeling good the last few days, he was not sleeping well, not eating well, he says he feels couple times but he cannot remember the details and he did not know for sure if he passed out or not. But he states that he bit his tongue and he had urine incontinence on himself but no bowel incontinence. He could not remember he had a seizure, he denies history of seizure he denies being on seizure medication. He says he feels wobbly and feels weak and painful all over, no specific weakness or numbness or loss of sensation. No headache or dizziness. He denies chest pain but is complaining from shortness of breath and coughing with clear phlegm which was worse over the last 2 days He also complained from mild lower abdominal pain, he says about 3/10 in severity, nonradiating, not localized felt like cramps. He says his bold movement were fine before but he wasn't short lately but denies vomiting. He denies dysuria or urgency. He smokes cigarettes, he rolled his on cigarettes he cannot tell, she smokes as he states, he denies alcohol or illicit drugs He denies symptoms of depression or suicidal or homicidal ideation but he admits to auditory hallucination, could not tell what the some sterile him Vitas looks stable. Labs showing mild leukocytosis of 11.7, rest of CBC is unremarkable. INR is 1.0. Sodium is 1:30. BMP is unremarkable Liver enzymes as well as elevated with AST 220 and ALT 97 but bilirubin is normal. Creatinine kinase is high 6047 Serum alcohol less than 10 Chest x-ray showing increased interstitial density compared to old exam could be some interstitial pneumonia. No obvious heart failure CT of the cervical spine: no Acute process after reviewing radiology department An ER visit Zithromax and ceftriaxone 1 and normal saline. 01/20/2022 Patient today feels better his sitting in chair looks more relaxed fully awake and oriented and his mentation at baseline, he denies headache or any neurological deficits. However still complaining of from generalized pain although he admits improvement. Creatinine kinase trending down from 6000 and 5000. WBC back to normal, sodium improved and hemoglobin is stable at 10.5. Patient is on Augmentin for possible pneumonia. Patient mentation is improved, neurology service evaluation is appreciated, EEG is negative for epileptiform discharge. His creatinine kinase trending down 6000 down to 5000. Patient kept on normal saline and Augmentin . Patient seen and examined. Denies any episodes of respiratory distress overnight. Vital signs stable REVIEW OF SYSTEMS: CONSTITUTIONAL: No fever, no malaise,. CARDIOVASCULAR: No chest pain, no palpitations, no syncope. PULMONARY: No shortness of breath, no cough, GASTROINTESTINAL: No diarrhea, no nausea, no vomiting, no abdominal pain. NEUROLOGICAL: No headaches, no weakness, PHYSICAL EXAMINATION: GENERAL: The patient is alert and oriented x3, not in any acute distress. Well developed, well nourished. HEENT: Pupils are round and equally reacting to light. EOMI. No scleral icterus. No conjunctival pallor. Normocephalic, atraumatic. No pharyngeal erythema. No thyromegaly. CARDIOVASCULAR: S1 and S2 present. No murmurs, rubs, or gallops. PULMONARY: Chest is clear to auscultation, no wheezing or crackles. ABDOMEN: Soft, nontender, nondistended, normoactive bowel sounds. No palpable organomegaly. MUSCULOSKELETAL: No joint swelling or deformity. EXTREMITIES: No cyanosis, clubbing, or pedal edema. NEUROLOGICAL: Gross neurological examination did not reveal any focal deficits. SKIN: No rashes. Assessment and plan Acute metabolic encephalopathy resolved Mild COPD exacerbation rhabdomyolysis Bacterial pneumonia Mild hypovolemic hyponatremia. Improved Auditory hallucination Mild transaminitis could be related to rhabdomyolysis (bilirubin is normal) Plan: Monitor vital signs. Monitor CBC DC fluids Continue with Augmentin for possible pneumonia Incentive spirometry, and held. Steroids, bronchodilator Psychiatry recommending the following We will restart Risperdal at 0.5 mg by mouth twice a day for psychosis We will restart BuSpar 10 mg by mouth 3 times a day for anxiety. Labs and medication were reviewed.. Continue same treatment. Continue with symptomatic treatment. Resume home medication. Monitor labs and vitals. DVT and GI prophylaxis. Further recommendations as per clinical course of the patient DVT prophylaxis: Objective - Vital Signs Vital signs: Vital Signs Temp 98.0 F 01/21/22 08:00 Pulse 57 L 01/21/22 08:00 Resp 16 01/21/22 08:00 BP 135/73 01/21/22 08:00 Pulse Ox 100 01/21/22 08:00 FiO2 Intake & Output 01/20/22 01/21/22 01/21/22 18:59 06:59 18:59 Intake Total 1040 0 Balance 1040 2060 Weight 61.235 kg Intake: Intake, IV Titration 1040 1560 Amount Sodium Chloride 0.9% 1 1040 1560 000 ml @ 130 mls/hr IV . Q7H42M [facility] Rx#:[id number] Oral 500 - Labs CBC & Chem 7: 01/21/22 07:30 01/21/22 07:30 Labs: Abnormal Lab Results - Last 24 Hours (Table) 01/20/22 01/21/22 01/21/22 Range/Units 05:35 07:30 07:30 RBC 3.84 L (4.40-5.60) X 10*6/uL Hgb 11.3 L (13.0-17.0) g/dL Hct 34.7 L (39.6-50.0) % Monocytes # 1.21 H (0.20-1.00) X 10*3/uL Eosinophils # 0.03 L (0.04-0.35) X 10*3/uL Anion Gap 9.30 L 9.60 L (10.00-18.00) mmol/L BUN 28.7 H (9.0-27.0) mg/dL BUN/Creatinine Ratio 28.70 H (12.00-20.00) Ratio Calcium 8.3 L (8.7-10.3) mg/dL Creatine Kinase 5294 H* 3225 H* (35-257) U/L
[2022-01-21] MEDS: FAMOTIDINE 20 MG TAB PO SCH (20:05)
[2022-01-22] MEDS: SYMBICORT 160-4.5 MCG INHALER INHALATION SCH ×2 (07:52→21:30)
[2022-01-22] MEDS: risperiDONE 0.5 MG TAB PO SCH ×2 (09:19→21:48)
[2022-01-22] MEDS: HEPARIN SODIUM,PORCINE/PF 5,000 UNIT/0.5 ML SYRINGE SQ SCH ×2 (09:19→21:48)
[2022-01-22] MEDS: NICOTINE 21MG/24HR PATCH TRANSDERM SCH (09:19)
[2022-01-22] MEDS: busPIRone HCl 10 MG TAB PO SCH ×3 (09:19→21:48)
[2022-01-22] MEDS: AMOXIC-POT CLAV 875-125MG 1 EACH TAB PO SCH ×2 (09:19→21:48)
[2022-01-22] MEDS: FAMOTIDINE 20 MG TAB PO SCH ×2 (09:19→21:48)
--- NOTE | 2022-01-22 12:01 | P.PN ---
Subjective Progress Note Date: 01/22/22 This is a pleasant 61 years old male with unknown past medical history presents with altered mental status and was found stumbling outside of [employer] bar - patient is homeless and was wet and cold. Police state patient's alchohol was negative. An episode patient was lying in bed fully awake and oriented to time place and person he says he wasn't sure why he was brought to the hospital However he was not feeling good the last few days, he was not sleeping well, not eating well, he says he feels couple times but he cannot remember the details and he did not know for sure if he passed out or not. But he states that he bit his tongue and he had urine incontinence on himself but no bowel incontinence. He could not remember he had a seizure, he denies history of seizure he denies being on seizure medication. He says he feels wobbly and feels weak and painful all over, no specific weakness or numbness or loss of sensation. No headache or dizziness. He denies chest pain but is complaining from shortness of breath and coughing with clear phlegm which was worse over the last 2 days He also complained from mild lower abdominal pain, he says about 3/10 in severity, nonradiating, not localized felt like cramps. He says his bold movement were fine before but he wasn't short lately but denies vomiting. He denies dysuria or urgency. He smokes cigarettes, he rolled his on cigarettes he cannot tell, she smokes as he states, he denies alcohol or illicit drugs He denies symptoms of depression or suicidal or homicidal ideation but he admits to auditory hallucination, could not tell what the some sterile him Vitas looks stable. Labs showing mild leukocytosis of 11.7, rest of CBC is unremarkable. INR is 1.0. Sodium is 1:30. BMP is unremarkable Liver enzymes as well as elevated with AST 220 and ALT 97 but bilirubin is normal. Creatinine kinase is high 6047 Serum alcohol less than 10 Chest x-ray showing increased interstitial density compared to old exam could be some interstitial pneumonia. No obvious heart failure CT of the cervical spine: no Acute process after reviewing radiology department An ER visit Zithromax and ceftriaxone 1 and normal saline. 01/20/2022 Patient today feels better his sitting in chair looks more relaxed fully awake and oriented and his mentation at baseline, he denies headache or any neurological deficits. However still complaining of from generalized pain although he admits improvement. Creatinine kinase trending down from 6000 and 5000. WBC back to normal, sodium improved and hemoglobin is stable at 10.5. Patient is on Augmentin for possible pneumonia. Patient mentation is improved, neurology service evaluation is appreciated, EEG is negative for epileptiform discharge. His creatinine kinase trending down 6000 down to 5000. Patient kept on normal saline and Augmentin 01/22. Patient seen and examined. Denies any episodes of respiratory distress overnight. Vital signs stable 01/22. Patient seen and examined. Complaining of swelling of lower extremities. Denies any shortness of breath REVIEW OF SYSTEMS: CONSTITUTIONAL: No fever, no malaise,. CARDIOVASCULAR: No chest pain, no palpitations, no syncope. PULMONARY: No shortness of breath, no cough, GASTROINTESTINAL: No diarrhea, no nausea, no vomiting, no abdominal pain. NEUROLOGICAL: No headaches, no weakness, PHYSICAL EXAMINATION: GENERAL: The patient is alert and oriented x3, not in any acute distress. Well developed, well nourished. HEENT: Pupils are round and equally reacting to light. EOMI. No scleral icterus. No conjunctival pallor. Normocephalic, atraumatic. No pharyngeal erythema. No thyromegaly. CARDIOVASCULAR: S1 and S2 present. No murmurs, rubs, or gallops. PULMONARY: Chest is clear to auscultation, no wheezing or crackles. ABDOMEN: Soft, nontender, nondistended, normoactive bowel sounds. No palpable organomegaly. MUSCULOSKELETAL: No joint swelling or deformity. EXTREMITIES: 1+ pitting edema lower extremities bilaterally NEUROLOGICAL: Gross neurological examination did not reveal any focal deficits. SKIN: No rashes. Assessment and plan Acute metabolic encephalopathy resolved Mild COPD exacerbation rhabdomyolysis Bacterial pneumonia Mild hypovolemic hyponatremia. Improved Auditory hallucination Mild transaminitis could be related to rhabdomyolysis (bilirubin is normal) Plan: Monitor vital signs. Monitor CBC Given dose of Lasix 20 mg IV Continue with Augmentin for possible pneumonia Incentive spirometry, and held. Steroids, bronchodilator Psychiatry recommending the following Risperdal at 0.5 mg by mouth twice a day for psychosis BuSpar 10 mg by mouth 3 times a day for anxiety. Labs and medication were reviewed.. Continue same treatment. DVT and GI prophylaxis. Further recommendations as per clinical course of the patient Objective - Vital Signs Vital signs: Vital Signs Temp 98.9 F 01/22/22 02:20 Pulse 87 01/22/22 02:20 Resp 16 01/22/22 02:20 BP 121/72 01/22/22 02:20 Pulse Ox 95 01/22/22 02:20 FiO2 Intake & Output 01/21/22 01/22/22 01/22/22 18:59 06:59 18:59 Intake Total 1040 1000 Balance 1040 1000 Intake: Intake, IV Titration 1040 Amount Sodium Chloride 0.9% 1, 1040 000 ml @ 130 mls/hr IV . Q7H42M [facility] Rx#:[id number] Oral 1000 Other: # Voids 3 - Labs CBC & Chem 7: 01/21/22 07:30 01/21/22 07:30 Labs: Abnormal Lab Results - Last 24 Hours (Table) 01/21/22 Range/Units 07:30 Anion Gap 9.60 L (10.00-18.00) mmol/L Creatine Kinase 3225 H* (35-257) U/L
[2022-01-22] MEDS ORDERED: FUROSEMIDE 10 MG/ML 2 ML VIAL IV STA (12:02)
--- NOTE | 2022-01-22 22:47 | P.PN ---
Subjective Progress Note Date: 01/22/22 Patient was seen for a follow-up. Patient is sitting in the recliner. Complains of swelling in the legs. Patient states it's hard to walk around because of the feet swelling. The feet are red and swollen. He has significant peripheral edema. Objective - Vital Signs Vital signs: Vital Signs Temp 97.8 F 01/22/22 08:00 Pulse 76 01/22/22 08:00 Resp 16 01/22/22 08:00 BP 137/72 01/22/22 08:00 Pulse Ox 94 L 01/22/22 08:00 FiO2 Intake & Output 01/21/22 01/22/22 01/22/22 18:59 06:59 18:59 Intake Total 1040 1000 Balance 1040 1000 Intake: Intake, IV Titration 1040 Amount Sodium Chloride 0.9% 1, 1040 000 ml @ 130 mls/hr IV . Q7H42M [facility] Rx#:[id number] Oral 1000 Other: # Voids 3 - Exam Patient's mental status, speech and language functions are normal. Muscle strength is normal. Patient has significant peripheral edema. His knees are red, scabs on the knees. Examination is nonfocal. - Labs CBC & Chem 7: 01/21/22 07:30 01/21/22 07:30 Assessment and Plan Assessment: * Altered mental status, likely due to metabolic encephalopathy. * Possible seizure, which could be related to withdrawal. * History of alcoholism, tobacco use. * Homeless state for 2 months. * Elevated liver enzymes * Hyponatremia * Rhabdomyolysis * Marijuana use Plan: * EEG 01/20/2022 was normal. It showed no epileptiform activity. No indication for antiepileptic medication at this time. * B12 476, folate 11.5, TSH 0.709. All normal * Repeat CPK improved 3225. * Patient informed of [place] state law of no driving unless seizure free for 6 was, climbing ladders, operating dangerous machinery or unsupervised swimming. * Recommended tobacco cessation, abstain from alcohol. * No other neurological workup indicated. Neurology will sign off. Please reconsult if any concerns.
--- NOTE | 2022-01-23 08:51 | XR ---
EXAMINATION TYPE: XR chest 1V DATE OF EXAM: 01/23/2022 COMPARISON: 01/19/2022 HISTORY: Shortness of breath TECHNIQUE: Single frontal view of the chest is obtained. FINDINGS: There is no focal air space opacity, pleural effusion, or pneumothorax seen. The cardiac silhouette size is within normal limits. The osseous structures are intact. Coarsened interstitium. Hyperinflation. Degenerative changes and curvature of the spine. IMPRESSION: 1. Correlate for COPD and chronic interstitial lung disease.
[2022-01-23] MEDS: AMOXIC-POT CLAV 875-125MG 1 EACH TAB PO SCH ×2 (09:02→21:52)
[2022-01-23] MEDS: FAMOTIDINE 20 MG TAB PO SCH ×2 (09:02→21:52)
[2022-01-23] MEDS: risperiDONE 0.5 MG TAB PO SCH ×2 (09:02→21:52)
[2022-01-23] MEDS: busPIRone HCl 10 MG TAB PO SCH ×3 (09:02→21:52)
[2022-01-23] MEDS: NICOTINE 21MG/24HR PATCH TRANSDERM SCH (09:02)
[2022-01-23] MEDS: SYMBICORT 160-4.5 MCG INHALER INHALATION SCH ×2 (09:04→21:12)
[2022-01-23] MEDS: HEPARIN SODIUM,PORCINE/PF 5,000 UNIT/0.5 ML SYRINGE SQ SCH ×2 (09:05→21:52)
[2022-01-23 10:10] LABS: HCT 38.5 % (39.0-53.0); HGB 12.8 gm/dL (13.0-17.5); MCH 30.8 pg (25.0-35.0); MCHC 33.3 g/dL (31.0-37.0); MCV 92.6 fL (80.0-100.0); Mean Platelet Volume 9.1; Platelet Count 267 k/uL (150-450); RBC 4.15 m/uL (4.30-5.90); RDW 13.5 % (11.5-15.5); WBC 4.6 k/uL (3.8-10.6)
[2022-01-23 12:08] LABS: ALT 83 U/L (4-49); AST 71 U/L (17-59); African American GFR (CKD) >90 (>60 ml/min/1.73 sqM); Albumin/Globulin Ratio 1.6; Alkaline Phosphatase 84 U/L (38-126); Anion Gap 6 mmol/L; Blood Urea Nitrogen 29 mg/dL (9-20); Calcium 9.4 mg/dL (8.4-10.2); Carbon Dioxide 33 mmol/L (22-30); Chloride 102 mmol/L (98-107); Globulin 2.5 g/dL; Glucose 81 mg/dL (74-99); Non-African American GFR(CKD) 86 (>60 ml/min/1.73 sqM); Potassium 4.3 mmol/L (3.5-5.1); Sodium 141 mmol/L (137-145); Total Bilirubin 0.4 mg/dL (0.2-1.3); Total Protein 6.5 g/dL (6.3-8.2)
--- NOTE | 2022-01-23 20:59 | P.PN ---
Subjective This is a pleasant 61 years old male with unknown past medical history presents with altered mental status and was found stumbling outside of [employer] bar - patient is homeless and was wet and cold. Police state patient's alchohol was negative. An episode patient was lying in bed fully awake and oriented to time place and person he says he wasn't sure why he was brought to the hospital However he was not feeling good the last few days, he was not sleeping well, not eating well, he says he feels couple times but he cannot remember the details and he did not know for sure if he passed out or not. But he states that he bit his tongue and he had urine incontinence on himself but no bowel incontinence. He could not remember he had a seizure, he denies history of seizure he denies being on seizure medication. He says he feels wobbly and feels weak and painful all over, no specific weakness or numbness or loss of sensation. No headache or dizziness. He denies chest pain but is complaining from shortness of breath and coughing with clear phlegm which was worse over the last 2 days He also complained from mild lower abdominal pain, he says about 3/10 in severity, nonradiating, not localized felt like cramps. He says his bold movement were fine before but he wasn't short lately but denies vomiting. He denies dysuria or urgency. He smokes cigarettes, he rolled his on cigarettes he cannot tell, she smokes as he states, he denies alcohol or illicit drugs He denies symptoms of depression or suicidal or homicidal ideation but he admits to auditory hallucination, could not tell what the some sterile him Vitas looks stable. Labs showing mild leukocytosis of 11.7, rest of CBC is unremarkable. INR is 1.0. Sodium is 1:30. BMP is unremarkable Liver enzymes as well as elevated with AST 220 and ALT 97 but bilirubin is normal. Creatinine kinase is high 6047 Serum alcohol less than 10 Chest x-ray showing increased interstitial density compared to old exam could be some interstitial pneumonia. No obvious heart failure CT of the cervical spine: no Acute process after reviewing radiology department An ER visit Zithromax and ceftriaxone 1 and normal saline. 01/20/2022 Patient today feels better his sitting in chair looks more relaxed fully awake and oriented and his mentation at baseline, he denies headache or any neurologi fabian deficits. However still complaining of from generalized pain although he admits improvement. Creatinine kinase trending down from 6000 and 5000. WBC back to normal, sodium improved and hemoglobin is stable at 10.5. Patient is on Augmentin for possible pneumonia. Patient mentation is improved, neurology service evaluation is appreciated, EEG is negative for epileptiform discharge. His creatinine kinase trending down 6000 down to 5000. Patient kept on normal saline and Augmentin Resume the care of the patient 01/23/2022 Patient mentation is back to baseline. Neurologist site of the case with no further workup required. His pneumonia also improving significantly, his walking in the room with relieving on room air denies any respiratory symptoms, no cough no chest pain or dyspnea. Chest x-ray showing COPD and chronic interstitial lung disease with no focal obesity and the airspace. Priorcalcitonin, down to 0.7 down to 0.12. Patient remains on Augmentin which he Finished for short course upon discharge Liver enzymes trended down significantly, creatinine kinase came down to 875. No leukocytosis and sodium improved Patient is medically stable for discharge pending placement. Discussed with the staff today because of placement issue probably will go tomorrow, as he is jaron eless to start with and he is going to a new residence, please refer to social insurance analyst Objective - Vital Signs Vital signs: Vital Signs Temp 98.0 F 01/23/22 14:00 Pulse 89 01/23/22 14:00 Resp 16 01/23/22 14:00 BP 133/75 01/23/22 14:00 Pulse Ox 99 01/23/22 14:00 FiO2 Intake & Output 01/22/22 01/23/22 01/23/22 18:59 06:59 18:59 Other: # Voids 7 3 - Exam GENERAL: The patient is alert and oriented x3, not in any acute distress. Well developed, well nourished. HEENT: Pupils are round and equally reacting to light. EOMI. No scleral icterus. No conjunctival pallor. Normocephalic, atraumatic. No pharyngeal erythema. No thyromegaly. CARDIOVASCULAR: S1 and S2 present. No murmurs, rubs, or gallops. PULMONARY: Chest is clear to auscultation, no wheezing or crackles. ABDOMEN: Soft, nontender, nondistended, normoactive bowel sounds. No palpable organomegaly. MUSCULOSKELETAL: No joint swelling or deformity. EXTREMITIES: No cyanosis, clubbing, or pedal edema. NEUROLOGICAL: Gross neurological examination did not reveal any focal deficits. SKIN: No rashes. no petechiae. - Labs CBC & Chem 7: 01/23/22 09:19 01/23/22 09:19 Labs: Abnormal Lab Results - Last 24 Hours (Table) 01/23/22 01/23/22 01/23/22 Range/Units 09:19 09:19 09:19 RBC 4.15 L (4.30-5.90) m/uL Hgb 12.8 L (13.0-17.5) gm/dL Hct 38.5 L (39.0-53.0) % Carbon Dioxide 33 H (22-30) mmol/L BUN 29 H (9-20) mg/dL AST 71 H (17-59) U/L ALT 83 H (4-49) U/L Creatine Kinase (55-170) U/L Procalcitonin 0.12 H (0.02-0.09) ng/mL 01/23/22 Range/Units 09:19 RBC (4.30-5.90) m/uL Hgb (13.0-17.5) gm/dL Hct (39.0-53.0) % Carbon Dioxide (22-30) mmol/L BUN (9-20) mg/dL AST (17-59) U/L ALT (4-49) U/L Creatine Kinase 875 H (55-170) U/L Procalcitonin (0.02-0.09) ng/mL Assessment and Plan Assessment: Transient period of Altered mental status, resolved now Mild COPD exacerbation rhabdomyolysis Increased interstitial density which could be mild interstitial pneumonia Mild hypovolemic hyponatremia. Improved Auditory hallucination Mild transaminitis could be related to rhabdomyolysis (bilirubin is normal) Plan: Patient clinically is improved Psychiatry signs of and recommended outpatient follow-up, patient already has follow-up information written down in the paper including [facility] thus he intends to follow Patient has no PCP but he has medical insurance I informed him to check with his medical insurance provider to find nearby PCP and call make appointment in 1 week after discharge and he agrees Patient will be discharged a short course of oral Augmentin Labs and medication were reviewed.. Continue same treatment. Continue with symptomatic treatment. Resume home medication. Monitor labs and vitals. DVT and GI prophylaxis. Further recommendations as per clinical course of the patient DVT prophylaxis: Subcutaneous heparin GI Prophylaxis: Pepcid Patient is clinically stable for discharge pending placement
[2022-01-24 02:15] VITALS: RESP 17
[2022-01-24 07:32] VITALS: BP 155/113; PULSE 56; TEMP 96
[2022-01-24] MEDS: SYMBICORT 160-4.5 MCG INHALER INHALATION SCH (08:58)
[2022-01-24] MEDS: busPIRone HCl 10 MG TAB PO SCH (09:25)
[2022-01-24] MEDS: FAMOTIDINE 20 MG TAB PO SCH (09:25)
[2022-01-24] MEDS: AMOXIC-POT CLAV 875-125MG 1 EACH TAB PO SCH (09:25)
[2022-01-24] MEDS: HEPARIN SODIUM,PORCINE/PF 5,000 UNIT/0.5 ML SYRINGE SQ SCH (09:25)
[2022-01-24] MEDS: risperiDONE 0.5 MG TAB PO SCH (09:26)
[2022-01-24] MEDS: NICOTINE 21MG/24HR PATCH TRANSDERM SCH (09:26)
--- NOTE | 2022-01-24 21:08 | P.DS ---
Providers Date of admission: 01/19/22 04:20 Attending physician: Razia Haywood Consults: 01/19/22 07:49 Consult Physician Routine Consulting Provider: Rashad Demarco Consult Reason/Comments: Auditory hallucination, homeless Do you want consulting provider notified?: Yes Consult Physician Routine Consulting Provider: Macho Collins Consult Reason/Comments: transient ams on admission Do you want consulting provider notified?: Yes Primary care physician: Susan Salmon Hospital Course: Diagnoses Transient period of Altered mental status, EEG negative for epileptiform discharge, most likely withdrawal seizure resolved now Mild COPD exacerbation, patient brought her rhabdomyolysis , resolved Increased interstitial density which could be mild interstitial pneumonia, improved Mild hypovolemic hyponatremia. Improved Auditory hallucination, secondary to schizophrenia, evaluated by psychiatrist and cleared for discharge Mild transaminitis could be related to rhabdomyolysis (bilirubin is normal) Hospital course: This is a pleasant 61 years old male with unknown past medical history presents with altered mental status and was found stumbling outside [place] bus . Patient was brought by police to the hospital. Patient has been evaluated by neurologist and psychiatrist. His AMS was thought secondary to metabolic/toxic encephalopathy and possible withdrawal seizure which is completely resolved and patient back to his normal baseline mentally over the last 2-3 days, his rhabdomyolysis was improving, CK trending down at 78 on discharge. Liver enzymes common down. Sodium level improved, leukocytosis improved. Repeat chest x-ray showing chronic changes COPD with no acute finding. Patient also evaluated by neurologist EEG is negative. No new seizure medication started Psychiatric started the patient on BuSpar and risperidone and recommended outpatient follow-up, patient has the contact information for [facility] and he told me he and test to call them and follow-up in 1-2 weeks. social worker masters F and gum to place prostate with or through his Payee Patient agrees to be discharged since yesterday pending placement Today no more changes in his clinical situation, he was seen in walking normally in the room and in the hallway completely asymptomatic. Patient was cleared for discharge by neurology and psychiatry service Problems and management plan were discussed with the patient and he verbalized understanding and acceptance Patient was found stable and can be discharged home in guarded prognosis however he needs follow-up as an outpatient. Patient was instructed to follow up with PCP Dr. torre within one week and patient agrees Physical exam Gen: patient is a AAOx3, no distress CVS: S1-S2, RRR, no murmur Lungs: B/L CTA, no wheezing Abdomen: soft, no distention, no tenderness, positive bowel sounds Extremity: no leg edema or induration Time spent more than 35 minutes Patient Condition at Discharge: Stable Plan - Discharge Summary New Discharge Prescriptions: New Nicotine 21Mg/24Hr Patch [Habitrol] 1 patch TRANSDERM DAILY #5 patch Amoxic-Pot Clav 875-125Mg [Augmentin 875-125] 1 each PO Q12HR 7 Days #14 tab busPIRone HCl [Buspar] 10 mg PO TID #90 tab risperiDONE [RisperDAL] 0.5 mg PO BID #60 tab Budesonide-Formot 160-4.5 Mcg [Symbicort 160-4.5 Mcg Inhaler] 2 puff INHALATION RT-BID #1 each Discharge Medication List Amoxic-Pot Clav 875-125Mg [Augmentin 875-125] 1 each PO Q12HR 7 Days #14 tab 01/23/22 [Rx] Budesonide-Formot 160-4.5 Mcg [Symbicort 160-4.5 Mcg Inhaler] 2 puff INHALATION RT-BID #1 each 01/23/22 [Rx] Nicotine 21Mg/24Hr Patch [Habitrol] 1 patch TRANSDERM DAILY #5 patch 01/23/22 [Rx] busPIRone HCl [Buspar] 10 mg PO TID #90 tab 01/23/22 [Rx] risperiDONE [RisperDAL] 0.5 mg PO BID #60 tab 01/23/22 [Rx] Follow up Appointment(s)/Referral(s): Susan Salmon MD [Primary Care Provider] - 1-2 days Patient Instructions/Handouts: Rhabdomyolysis (DC) Activity/Diet/Wound Care/Special Instructions: heart healthy diet activity is restricted till you see your doctor Discharge Disposition: HOME SELF-CARE
--- NOTE | 2022-01-28 19:20 | CDI ---
Documentation Clarification Form Date: 01/28/2022 07:16 PM From: Lola Hightower Phone: Admit Date: 01/19/2022 04:20:00 AM Patient Name: Rei Andres Visit Number: [id number] Discharge Date: 01/24/2022 11:01:00 AM ATTENTION: The Clinical Documentation Specialists (CDI) and [facility] Coding Staff appreciate your assistance in clarifying documentation. Please respond to the clarification below the line at the bottom and electronically sign. The CDI & [facility] Coding staff will review the response and follow-up if needed. Please note: Queries are made part of the Legal Health Record. If you have any questions, please contact the author of this message via ITS. Dr. José Luis Jimenez Rhabdomyolysis is documented per ED Note. Additional clarification regarding the type of rhabdomyolysis is requested. History/Risk Factors: 61yo M, bacterial PNA w AECOPD, Rhabd, fall, Chilblains, homeless, Met/toxic encephalopathy, ETOH WD seizures, Schizophrenia, cervical Spondylosis, Meth, opioid & cocaine use Clinical Indicators: Urine Ketones 2+ H 2+ H (Negative) Was found stumbling outside. Pt homeless and was wet and cold. He says he feels wobbly, weak and painful all over, no specific weakness or numbness or loss of sensation. He bit his tongue and he had urine incontinence on himself 01/22 Patient seen and examined. Complaining of swelling of lower extremities. Treatment: fluid hydration Please clarify the type of rhabdomyolysis, if known: [ ] Traumatic rhabdomyolysis due to fall [ ] Non traumatic rhabdomyolysis due to (please specify) [ ] Other, please specify [ ] Unable to Determine (Template Last Revised: April 2020) Traumatic rhabdomyolysis due to fall, due to possible withdrawal seizure MTDD
--- NOTE | 2022-01-28 19:33 | CDI ---
Documentation Clarification Form Date: 01/28/2022 07:16:00 PM From: Lola Hightower Phone: Admit Date: 01/19/2022 04:20:00 AM Patient Name: Rei Andres Visit Number: [id number] Discharge Date: 01/24/2022 11:01:00 AM ATTENTION: The Clinical Documentation Specialists (CDI) and [facility] Coding Staff appreciate your assistance in clarifying documentation. Please respond to the clarification below the line at the bottom and electronically sign. The CDI & [facility] Coding staff will review the response and follow-up if needed. Please note: Queries are made part of the Legal Health Record. If you have any questions, please contact the author of this message via ITS. Dr. Ordonez Sheet Your patient is receiving the following: We are unable to obtain an original temperature on the patient and therefore he is placed on a bear hugger. Please clarify what condition/diagnosis is being treated. History/Risk Factors: 61yo M, bacterial PNA w AECOPD, Rhabdomyolysis, fall, Chilblains, homeless, Met/toxic encephalopathy, ETOH WD seizures, Schizophrenia, cervical Spondylosis, Meth, opioid & cocaine use Clinical Indicators: Was found stumbling outside. Pt homeless and was wet and cold. Unable to obtain an original temperature Treatment: placed on a bear hugger Please clarify the type of rhabdomyolysis, if known: [ ] Hypothermia due to low environmental temperature [ ] Hypothermia not associated with low environmental temperature. [ ] Other, please specify [ ] Unable to Determine (Template Last Revised: April 2020) MTDD
== END 2022-01-24 11:01 | disposition home or self-care (01) | DRG 896 ==
LOC: EC 23:45 → 4SSUR 01-19 04:20
PROVIDERS: ADMIT Hospitalist; ATTEND Hospitalist
DX: F10.239 Alcohol dependence with withdrawal, unspecified (principal); G92.8 Other toxic encephalopathy; J15.9 Unspecified bacterial pneumonia; G40.89 Other seizures; J44.0 Chronic obstructive pulmonary disease with (acute) lower respiratory infection; E87.1 Hypo-osmolality and hyponatremia; J44.1 Chronic obstructive pulmonary disease with (acute) exacerbation; J84.9 Interstitial pulmonary disease, unspecified; F20.9 Schizophrenia, unspecified; E86.1 Hypovolemia; F11.90 Opioid use, unspecified, uncomplicated; T79.6XXA Traumatic ischemia of muscle, initial encounter; M47.812 Spondylosis without myelopathy or radiculopathy, cervical region; S80.212A Abrasion, left knee, initial encounter; T69.1XXA Chilblains, initial encounter; S01.551A Open bite of lip, initial encounter; Y90.0 Blood alcohol level of less than 20 mg/100 ml; R01.1 Cardiac murmur, unspecified; R32 Unspecified urinary incontinence; F17.210 Nicotine dependence, cigarettes, uncomplicated; R74.01 Elevation of levels of liver transaminase levels; M79.89 Other specified soft tissue disorders; R60.0 Localized edema; R74.8 Abnormal levels of other serum enzymes; R26.81 Unsteadiness on feet; F15.90 Other stimulant use, unspecified, uncomplicated; F14.90 Cocaine use, unspecified, uncomplicated; W01.0XXA Fall on same level from slipping, tripping and stumbling without subsequent striking against object, initial encounter; Z59.00 Homelessness unspecified; X31.XXXA Exposure to excessive natural cold, initial encounter; Z28.310 Unvaccinated for COVID-19; Z56.0 Unemployment, unspecified; Z91.51 Personal history of suicidal behavior
CPT/HCPCS: 36415; 70450; 71045; 71046; 72125; 80048; 80053; 80306; 80320; 81003; 82550; 82607; 82746; 83735; 84145; 84443; 84484; 85025; 85027; 85610; 85730; 93005; 94640; 95816; 96361; 96365; 96366; 96375; 99285